=== PATIENT | male | born 1960 | race American Indian/Alaskan Native ===

== ENCOUNTER 2017-12-12 14:31 | Emergency (ER) | payer MEDICAID ==
[2017-12-12 15:20] VITALS: BP 153/101
[2017-12-12] MEDS ORDERED: TORADOL IM ONE (19:49)
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
== END 2017-12-12 20:30 | disposition home or self-care (01) ==
LOC: ED 14:31
DX: S39.012A Strain of muscle, fascia and tendon of lower back, initial encounter (principal); I10 Essential (primary) hypertension; F12.10 Cannabis abuse, uncomplicated; X50.9XXA Other and unspecified overexertion or strenuous movements or postures, initial encounter; Y93.89 Activity, other specified; Y92.89 Other specified places as the place of occurrence of the external cause; Y99.8 Other external cause status
CPT/HCPCS: 96372; 99282; J1885